=== PATIENT | male | born 1970 | race Asian ===

== ENCOUNTER 2018-03-17 08:23 | Day surgery (SDC) | payer OTHER ==
[2018-03-14 14:56] VITALS: BMI 29.1
[2018-03-17] MEDS ORDERED: oxyCODONE HCL 5 MG TABLET PO PRN (10:15)
[2018-03-17] MEDS ORDERED: ACETAMINOPHEN 500 MG TABLET (FP) PO PRN (10:15)
[2018-03-17] MEDS ORDERED: LACTATED RINGERS SOLUTION 1,000 ML IV SCH (10:15)
[2018-03-17] MEDS ORDERED: ONDANSETRON 4 MG/2 ML VIAL IVPUSH PRN (10:15)
[2018-03-17] MEDS ORDERED: ceFAZolin SODIUM 1 GM VIAL ONE (10:41)
[2018-03-17] MEDS ORDERED: GENTAMICIN SO4 80 MG/2 ML VIAL ONE (10:41)
[2018-03-17] MEDS ORDERED: LIDOCAINE HCL/PF 2% SDV 5ML VIAL ONE (10:41)
[2018-03-17] MEDS ORDERED: MIDAZOLAM HCL 2 MG/2 ML SINGLE DOSE VIAL ONE (10:42)
[2018-03-17] MEDS ORDERED: PROPOFOL 20 ML ONE ×2 (10:42)
[2018-03-17] MEDS ORDERED: GENTAMICIN SO4 80 MG/2 ML VIAL IVPB ONE (10:56)
[2018-03-17] MEDS ORDERED: ceFAZolin SODIUM 1 GM VIAL IVPB ONE (10:58)
[2018-03-17] MEDS ORDERED: GLYCOPYRROLATE 0.2 MG/1 ML VIAL ONE (11:33)
[2018-03-17] MEDS ORDERED: ACETAMINOPHEN INJECTION 100 ML IVPB ONE (13:25)
--- NOTE | 2018-03-17 14:25 | OP ---
Operative Note - Note: Operative Date: 03/17/18 Pre-Operative Diagnosis: left renal stone Operation: cystoscopy/urethral dilation/left retrograde pyelogram/left ureteroscopic laser lithotripsy/left ureteral stent placement Findings: bulbous urethral stricture staghorn calculus involving all calyces and renal pelvis Post-Operative Diagnosis: Other (urethral stricture/left staghorn renal calculus ) Surgeon: Ryan Randhawa Anesthesia: General Drains & Tubes with Location: 05/04 left ureteral stent. rolon catheter
[2018-03-17 15:53] VITALS: BP 104/71; PULSE 73
[2018-03-17 15:58] VITALS: TEMP 98.4
--- NOTE | 2018-03-18 00:31 | OP ---
DATE OF OPERATION: 03/17/2018 PREOPERATIVE DIAGNOSIS: Left renal stone. POSTOPERATIVE DIAGNOSIS: Staghorn renal calculus involving all calyces and renal pelvis and bulbous urethral stricture. PROCEDURE: Cystoscopy, urethral dilation, left retrograde pyelogram, left ureteroscopic laser lithotripsy, left ureteral stent placement. ATTENDING: Jossy Randhawa M.D. ANESTHESIA: General. DESCRIPTION OF PROCEDURE: The patient was brought in the operating room, placed in supine position on operating table. General anesthesia was then administered. Preoperative antibiotics consisting of Ancef and gentamicin was then administered. Cystoscopy was performed, and no evidence of stones or neoplasm were noted within the bladder. A calcific density was noted which appeared to be the size of the kidney. A retrograde pyelogram confirmed that this was a staghorn calculus involving the renal pelvis, and all calyces of the left renal system. At this point, a wire was passed proximally. It must be noted that prior to this a stricture had been encountered at the bulbous urethra, which was dilated with curved sounds. The dilation was carried forth to the [address] [place]. With the wire now passed proximally into the left collecting system, the ureteroscopy was performed and the stone was noted to be eminent involving all calices. Lithotripsy was performed in order to gain access into the kidney. A holmium laser was utilized, minimum of the stone was performed. It was bleeding emanating from the manipulation of the stone. It was decided that it would be best to stent the patient and see if there was any significant renal function in this kidney as the risk, benefit analysis would negate any further treatment if there is no function in this kidney. The [address] [place] 24 cm stent was placed over the wire, utilizing the Seldinger technique. The cystoscope was removed. A Salmeron catheter was placed in position due to the urethral stricture. The patient will be scheduled for a renal scan at a later date in order to determine what further treatment is necessary with this kidney. There were no complications noted. DISPOSITION: Patient to recovery room. JOSSY ALICIA M.D. [id number]
== END 2018-03-17 15:58 | disposition home or self-care (01) ==
LOC: JASU-SURG 08:23
PROVIDERS: ATTEND Urology
PROC: 0TF78ZZ Fragmentation in Left Ureter, Via Natural or Artificial Opening Endoscopic (ICD-10-PCS; principal; 2018-03-17 10:00)
PROC: 0T778DZ Dilation of Left Ureter with Intraluminal Device, Via Natural or Artificial Opening Endoscopic (ICD-10-PCS; 2018-03-17 10:00)
PROC: 0T7D8DZ Dilation of Urethra with Intraluminal Device, Via Natural or Artificial Opening Endoscopic (ICD-10-PCS; 2018-03-17 10:00)
DX: N20.0 Calculus of kidney (principal)
CPT/HCPCS: 76000-TC-FY; 94760; J0131

== ENCOUNTER 2023-02-12 04:22 | Day surgery (SDC) | payer OTHER ==
[2023-02-06 15:02] VITALS: BMI 30.2
[2023-02-12 08:55] VITALS: RESP 18
[2023-02-12] MEDS ORDERED: oxyCODONE HCL 5 MG TABLET PO PRN ×2 (10:33)
[2023-02-12] MEDS ORDERED: ONDANSETRON 4 MG/2 ML VIAL IVPUSH PRN (10:33)
[2023-02-12] MEDS ORDERED: MIDAZOLAM HCL 2 MG/2 ML SINGLE DOSE VIAL ONE (10:36)
[2023-02-12] MEDS ORDERED: ceFAZolin SODIUM 1 GM VIAL ONE (10:37)
[2023-02-12] MEDS ORDERED: SODIUM CHLORIDE 0.9% P/F 10 ML VIAL IJ ONE (10:37)
[2023-02-12] MEDS ORDERED: DEXAMETHASONE SOD PHOSPHATE 4 MG/1 ML VIAL ONE ×2 (10:37→12:31)
[2023-02-12] MEDS ORDERED: LIDOCAINE HCL/PF 2% SDV 5ML VIAL ONE (10:37)
[2023-02-12] MEDS ORDERED: LIDOCAINE HCL 1%, 10 MG/ML (10ML VIAL) MDV ONE ×2 (10:38→12:04)
[2023-02-12] MEDS ORDERED: BUPIVACAINE HCL/PF 0.5% (5MG/ML) 10 ML VIAL ONE ×2 (10:38→12:04)
[2023-02-12] MEDS ORDERED: LACTATED RINGERS SOLUTION 1,000 ML IV SCH (10:45)
[2023-02-12] MEDS ORDERED: PROPOFOL 20 ML ONE (11:02)
[2023-02-12] MEDS ORDERED: BUPIVACAINE HCL/PF 0.5% (5 MG/ML) 30 ML VIAL IJ ONE ×4 (11:11→11:17)
[2023-02-12] MEDS ORDERED: LIDOCAINE HCL 1%, 10 MG/ML (20ML VIAL) NR ONE ×4 (11:11→11:17)
[2023-02-12] MEDS ORDERED: KETOROLAC TROMETHAMINE 30 MG/1 ML VIAL ONE (11:22)
[2023-02-12] MEDS ORDERED: ONDANSETRON 4 MG/2 ML VIAL ONE (11:22)
[2023-02-12] MEDS ORDERED: ROCURONIUM BROMIDE 50 MG/5 ML SYRINGE ONE (11:59)
[2023-02-12] MEDS ORDERED: SUGAMMADEX SODIUM 200 MG/2 ML VIAL ONE (12:30)
[2023-02-12 16:27] VITALS: BP 126/86; PULSE 67; TEMP 97.9
== END 2023-02-12 16:52 | disposition home or self-care (01) ==
LOC: JASU-SURG 04:22
PROVIDERS: ATTEND Surgery
PROC: 0WUF0JZ Supplement Abdominal Wall with Synthetic Substitute, Open Approach (ICD-10-PCS; principal; 2023-02-12 10:30)
PROC: 0DQV0ZZ Repair Mesentery, Open Approach (ICD-10-PCS; 2023-02-12 10:30)
DX: K42.9 Umbilical hernia without obstruction or gangrene (principal)
CPT/HCPCS: 88302-TC; 94760; C1781